=== PATIENT | female | born 1995 | race African-American/Black ===

== ENCOUNTER 2016-07-04 03:16 | Emergency (ER) | payer OTHER ==
[~2016-07-04 03:16] MED LIST: DICL50TA2 PO; METH750T2 PO
[2016-07-04 03:20] VITALS: BP 168/91; PULSE 78; RESP 16; TEMP 97.6; O2SAT 99
[2016-07-04] MEDS ORDERED: SODIUM CHLOR 0.9% 1000 ML INJ 1,000 ML IV SCH (04:11)
[2016-07-04] MEDS ORDERED: ONDANSETRON HCL 4 MG/2 ML VIAL IVP ONE (04:15)
[2016-07-04] MEDS ORDERED: MORPHINE SULFATE 8 MG/ML INJ IV PUSH ONE (04:15)
[2016-07-04] MEDS ORDERED: SODIUM CHLORIDE 0.9% FLUSH 5 ML FLUSH IVF PRN (04:15)
[2016-07-04] MEDS ORDERED: IOHEXOL 350 MG/ML 10 ML VIAL (for RAD DIAG) IV ONE (04:26)
[2016-07-04 04:33] LABS: AUTOMATED NEUTROPHIL # 6.1 TH/MM3 (1.8-7.7); BASOPHIL # 0.1 TH/MM3 (0-0.2); BASOPHIL % 0.9 % (0.0-2.0); EOSINOPHIL # 0.1 TH/MM3 (0-0.4); EOSINOPHIL % 1.2 % (0.0-4.0); HEMATOCRIT 40.7 % (35.0-46.0); HEMO FLAGS DIFF FINAL; LYMPH % 26.4 % (9.0-44.0); LYMPHOCYTE # 2.5 TH/MM3 (1.0-4.8); MEAN CELL VOLUME 76.3 FL (80.0-100.0); MEAN CORPUSCULAR HEMOGLOBIN 25.6 PG (27.0-34.0); MEAN CORPUSCULAR HGB CONC 33.6 % (32.0-36.0); MONO % 5.8 % (0.0-8.0); NEUT % 65.7 % (16.0-70.0); PLATELET COUNT 371 TH/MM3 (150-450); RED BLOOD COUNT 5.33 MIL/MM3 (4.00-5.30); RED CELL DISTRIBUTION WIDTH 14.5 % (11.6-17.2); WHITE BLOOD COUNT 9.3 TH/MM3 (4.0-11.0)
[2016-07-04 04:57] VITALS: O2SAT 95
[2016-07-04 05:03] LABS: ALT (GPT) 22 U/L (10-53); ANION GAP 10 MEQ/L (5-15); AST (GOT) 9 U/L (15-37); BICARBONATE 24.6 MEQ/L (21.0-32.0); BLOOD UREA NITROGEN 5 MG/DL (7-18); CHLORIDE 102 MEQ/L (98-107); GLOMERULAR FILTRATION RATE 169 ML/MIN (>89); POTASSIUM 3.8 MEQ/L (3.5-5.1); SODIUM (NA) 137 MEQ/L (136-145)
[2016-07-04 05:04] LABS: ALKALINE PHOSPHATASE 68 U/L (45-117); TOTAL BILIRUBIN ADULT 0.5 MG/DL (0.2-1.0)
--- NOTE | 2016-07-04 05:32 | RADRPT ---
EXAM DATE/TIME: 07/04/2016 04:17 [place] COMPARISON: No previous studies available for comparison. INDICATIONS : Abdominal pain. IV CONTRAST: 88 cc Omnipaque 350 (iohexol) IV ORAL CONTRAST: No oral contrast ingested. RADIATION DOSE: 28.36 CTDIvol (mGy) MEDICAL HISTORY : None SURGICAL HISTORY : None. ENCOUNTER: Initial ACUITY: 1 day PAIN SCALE: 5/10 LOCATION: abdomen TECHNIQUE: Volumetric scanning of the abdomen and pelvis was performed. Using automated exposure control and ad justment of the mA and/or kV according to patient size, radiation dose was kept as low as reasonably achievable to obtain optimal diagnostic quality images. FINDINGS: Lung bases are clear. Mild fatty liver. Spleen, adrenals, kidneys and pancreas unremarkable. No calci fied gallstones or biliary ductal dilatation. No free fluid. No bowel obstruction. No adenopathy. In the right adnexal region is a 2.6 cm circumscr ibed lesion containing fat likely a small ovarian dermoid. CONCLUSION: 1. No acute findings within the abdomen and pelvis. Fatty liver. Small dermoid in the left adnexa. Tyron Hurt MD on July 04, 2016 at 5:28 Board Certified Radiologist. This report was verified electronically.
[2016-07-04 05:55] LABS: BLOOD, URINE NEG (NEG); COMMENT (UR) CULT NOT INDICATED; CULTURE IF INDICATED CULT NOT INDICATED; GLUCOSE,URINE 1000 mg/dL (NEG); KETONE, URINE 150 mg/dL (NEG); MUCUS URINE FEW /lpf (OCC); NITRITE,URINE NEG (NEG); PH, URINE 6.5 (5.0-8.5); SQUAMOUS EPITHELIAL CELL URINE 7 /hpf (0-5); URINE COLOR LIGHT-YELLOW (YELLW/STRAW)
--- NOTE | 2016-07-04 06:33 | PD ---
HPI Chief Complaint: GI Complaint Time Seen by Provider: 03:31 Travel History International Travel<30 days: No Contact w/Intl Traveler<30days: No Traveled to known affect area: No History of Present Illness HPI The patient is 21 years old and she arrives complaining of abdominal pain after eating hamburger. She has had pain in the right upper quadrant. Nausea vomiting diarrhea reported. Subjective fever reported. No urinary complaint reported. No sick contact. Last menstruation was a few days ago. Evidently the patient's father had a hamburger from the same restaurant a few hours later and was asymptomatic. Nonbloody emesis and diarrhea reported. PFSH Past Medical History Developmental Delay: No Diminished Hearing: No Immunizations Current: Yes Tetanus Vaccination: < 5 Years Influenza Vaccination: No ?: Not LMP: 06/28/16 Past Surgical History Tonsillectomy: Yes (AND ADNOIDS) Tympanostomy Tube: Yes Social History Alcohol Use: No Tobacco Use: No Substance Use: No Allergies-Medications (Allergen,Severity, Reaction): Coded Allergies: No Known Allergies (Verified , 07/04/16) Reported Meds & Prescriptions Reported Meds & Active Scripts Active Zofran Odt (Ondansetron Odt) 4 Mg Tab 4 Mg SL Q8HR PRN Review of Systems Except as stated in HPI: all other systems reviewed are Neg General / Constitutional: No: Fever HENT: Positive: Earache, No: Nosebleed Gastrointestinal: Positive: Nausea, Vomiting, Diarrhea, Abdominal Pain Physical Exam Narrative GENERAL: 21-year-old female pleasant no acute distress SKIN: Warm and dry. HEAD: Atraumatic. Normocephalic. EYES: Pupils equal and round. No scleral icterus. No injection or drainage. ENT: No nasal bleeding or discharge. Mucous membranes pink and moist. Tympanic membranes are pink with clear visualization of bony landmarks. NECK: Trachea midline. No JVD. CARDIOVASCULAR: Regular rate and rhythm. RESPIRATORY: No accessory muscle use. Clear to auscultation. Breath sounds equal bilaterally. GASTROINTESTINAL: Abdomen soft, non-tender, nondistended. Hepatic and splenic margins not palpable. MUSCULOSKELETAL: Extremities without clubbing, cyanosis, or edema. No obvious deformities. NEUROLOGICAL: Awake and alert. No obvious cranial nerve deficits. Motor grossly within normal limits. Five out of 5 muscle strength in the arms and legs. Normal speech. PSYCHIATRIC: Appropriate mood and affect; insight and judgment normal. Data Data Last Documented VS Vital Signs Date Time Temp Pulse Resp B/P Pulse Ox O2 Delivery O2 Flow Rate FiO2 07/04/16 06:45 98.4 87 18 148/74 100 Room Air Orders Complete Blood Count With Diff (07/04/16 04:11) Comprehensive Metabolic Panel (07/04/16 04:11) Lipase (07/04/16 04:11) Urinalysis - C+S If Indicated (07/04/16 04:11) Ct Abd/Pel W Iv Contrast(Rout) (07/04/16 04:11) Iv Access Insert/Monitor (07/04/16 04:11) Ecg Monitoring (07/04/16 04:11) Oximetry (07/04/16 04:11) Ondansetron Inj (Zofran Inj) (07/04/16 04:15) Sodium Chlor 0.9% 1000 Ml Inj (Ns 1000 M (07/04/16 04:11) Sodium Chloride 0.9% Flush (Ns Flush) (07/04/16 04:15) Morphine Inj (Morphine Inj) (07/04/16 04:15) Ed Urine Pregnancytest Poc (07/04/16 04:11) Iohexol 350 Inj (Omnipaque 350 Inj) (07/04/16 04:26) Labs Laboratory Tests Test 07/04/16 07/04/16 04:16 05:34 White Blood Count 9.3 TH/MM3 Red Blood Count 5.33 MIL/MM3 Hemoglobin 13.6 GM/DL Hematocrit 40.7 % Mean Corpuscular Volume 76.3 FL Mean Corpuscular Hemoglobin 25.6 PG Mean Corpuscular Hemoglobin 33.6 % Concent Red Cell Distribution Width 14.5 % Platelet Count 371 TH/MM3 Mean Platelet Volume 9.2 FL Neutrophils (%) (Auto) 65.7 % Lymphocytes (%) (Auto) 26.4 % Monocytes (%) (Auto) 5.8 % Eosinophils (%) (Auto) 1.2 % Basophils (%) (Auto) 0.9 % Neutrophils # (Auto) 6.1 TH/MM3 Lymphocytes # (Auto) 2.5 TH/MM3 Monocytes # (Auto) 0.5 TH/MM3 Eosinophils # (Auto) 0.1 TH/MM3 Basophils # (Auto) 0.1 TH/MM3 CBC Comment DIFF FINAL Differential Comment Sodium Level 137 MEQ/L Potassium Level 3.8 MEQ/L Chloride Level 102 MEQ/L Carbon Dioxide Level 24.6 MEQ/L Anion Gap 10 MEQ/L Blood Urea Nitrogen 5 MG/DL Creatinine 0.55 MG/DL Estimat Glomerular Filtration 169 ML/MIN Rate Random Glucose 284 MG/DL Calcium Level 8.5 MG/DL Total Bilirubin 0.5 MG/DL Aspartate Amino Transf 9 U/L (AST/SGOT) Alanine Aminotransferase 22 U/L (ALT/SGPT) Alkaline Phosphatase 68 U/L Total Protein 7.7 GM/DL Albumin 3.7 GM/DL Lipase 161 U/L Urine Color LIGHT-YELLOW Urine Turbidity CLEAR Urine pH 6.5 Urine Specific [place] GREATER THAN 1.050 Urine Protein TRACE mg/dL Urine Glucose (UA) 1000 mg/dL Urine Ketones 150 mg/dL Urine Occult Blood NEG Urine Nitrite NEG Urine Bilirubin NEG Urine Urobilinogen LESS THAN 2.0 MG/DL Urine Leukocyte Esterase NEG Urine RBC 3 /hpf Urine WBC 5 /hpf Urine Squamous Epithelial 7 /hpf Cells Urine Mucus FEW /lpf Microscopic Urinalysis Comment CULT NOT INDICATED MDM Medical Decision Making Medical Screen Exam Complete: Yes Emergency Medical Condition: Yes Medical Record Reviewed: Yes Differential Diagnosis Sinusitis, bronchitis, pneumonia, allergies, postnasal drip, GERD, asthma Narrative Course CBC & BMP Diagram 07/04/16 04:16 LFTs normal No AG acidosis Hyperglycemia d/w both patient and patient's mother by phone at 0800. Follow up with PMD discussed. Mother familiar with disease and will assist patient with follow up. Diagnosis Primary Impression: Abdominal pain Qualified Code: R10.13 - Epigastric pain Additional Impression: Hyperglycemia Referrals: Primary Care Physician 2 days Additional Instructions: You have a choice when it comes to health care, and we are glad that you chose [facility]. Hopefully, we have met your expectations on today's visit. You are welcome to return to [facility] at any time, as we are committed to meeting the health care needs of our community. Med/Other Pt SpecificInfo: Prescription(s) given Scripts Ondansetron Odt (Zofran Odt)4 Mg Tab4 Mg SL Q8HR PRN (Nausea/Vomiting) #10 TAB Ref 0 Prov:Octavio Kam MD 07/04/16 Disposition: 01 DISCHARGE HOME Condition: Stable Octavio aKm MD Jul 04, 2016 06:33
[2016-07-04 06:45] VITALS: BP 148/74; PULSE 87; RESP 18; TEMP 98.4; O2SAT 100
[2016-07-04] MEDS ORDERED: ZOFR4TAB3 SL (07:05)
[2016-07-05] MEDS ORDERED: METF500T PO (05:02)
[2016-07-05] MEDS ORDERED: REGL10TA5 PO (05:02)
[2016-07-05] MEDS ORDERED: ACCUMIS25 (05:02)
[2016-07-05] MEDS ORDERED: BLOO1KIT65 (05:02)
== END 2016-07-04 07:45 | disposition home or self-care (01) ==
LOC: NEPC 03:16
DX: R10.13 Epigastric pain (principal); R19.7 Diarrhea, unspecified; R11.2 Nausea with vomiting, unspecified; R73.9 Hyperglycemia, unspecified
CPT/HCPCS: 74177; 80053; 81001; 83690; 84703; 85025; 96361; 96374; 96375; 99284; J2270; J2405; J7030; Q9967

== ENCOUNTER 2016-07-05 03:12 | Emergency (ER) | payer OTHER ==
[~2016-07-05 03:12] MED LIST changes: -DICL50TA2 PO; -METH750T2 PO; +ZOFR4TAB3 SL
[2016-07-05 03:16] VITALS: BP 144/75; PULSE 68; RESP 16; TEMP 97.5; O2SAT 98
--- NOTE | 2016-07-05 03:47 | PD ---
HPI Chief Complaint: Abdominal Pain Time Seen by Provider: 03:47 Travel History International Travel<30 days: No Contact w/Intl Traveler<30days: No Traveled to known affect area: No History of Present Illness HPI 21-year-old female came to the emergency room with her mother with history of abdominal pain and vomiting. Patient was here the night prior for the exact same complain. She had blood test and CAT scan done. CAT scan showed fatty liver. Patient also incidentally had high blood sugar. She was discharged home on diclofenac for pain. And Zofran for nausea. However the pain and the vomiting continues and she seemed extremely anxious. She was crying and saying that she could not go to work feeling like this. When I went to see her she was asleep on the stretcher and did not seem to be in any significant distress. However as soon as she woke up and I was talking to her and her mother regarding the fatty liver syndrome and explaining to them that pathology she got very worked up and started to cry. Mother seems to understand but was concerned about this pain and vomiting. Patient last had some soup last night but was unable to keep it down. This has been going on for 4 days. [facility] Past Medical History Narrative Medical List of her past medical, surgical, social and family history is reviewed from the nursing note. Developmental Delay: No Diminished Hearing: No Immunizations Current: Yes ?: Not Past Surgical History Tonsillectomy: Yes (AND ADNOIDS) Tympanostomy Tube: Yes Social History Alcohol Use: No Tobacco Use: No Substance Use: No Allergies-Medications (Allergen,Severity, Reaction): Coded Allergies: No Known Allergies (Verified , 07/05/16) Comments No known drug allergies. Reported Meds & Prescriptions Reported Meds & Active Scripts Active Accu-Chek Capri Connect W/Device (Device) 1 Kit Kit 1 Kit .ROUTE DIRECTED Accu-Chek Fastclix Lancet 1 Mis Mis 1 Ea .ROUTE DIRECTED Reglan (Metoclopramide HCl) 10 Mg Tab 10 Mg PO TIDAC Metformin (Metformin HCl) 500 Mg Tab 500 Mg PO BIDPC With meals Zofran Odt (Ondansetron Odt) 4 Mg Tab 4 Mg SL Q8HR PRN Narrative Medication List of her home medications reviewed from the nursing note. Review of Systems Except as stated in HPI: all other systems reviewed are Neg Physical Exam Narrative GENERAL: Awake, alert, morbidly obese, anxious SKIN: Warm and dry. HEAD: Atraumatic. Normocephalic. EYES: Pupils equal and round. No scleral icterus. No injection or drainage. ENT: No nasal bleeding or discharge. Mucous membranes pink and moist. NECK: Trachea midline. No JVD. CARDIOVASCULAR: Regular rate and rhythm. No murmur appreciated. RESPIRATORY: No accessory muscle use. Clear to auscultation. Breath sounds equal bilaterally. GASTROINTESTINAL: Abdomen soft, non-tender, nondistended. Hepatic and splenic margins not palpable. MUSCULOSKELETAL: No obvious deformities. No clubbing. No cyanosis. No edema. NEUROLOGICAL: Awake and alert. No obvious cranial nerve deficits. Motor grossly within normal limits. Normal speech. PSYCHIATRIC: Appropriate mood and affect; insight and judgment normal. Data Data Last Documented VS Orders Blood Glucose (07/05/16 03:57) Mandatory Outpatient Referral (07/05/16 05:09) [facility] Medical Decision Making Medical Screen Exam Complete: Yes Emergency Medical Condition: Yes Medical Record Reviewed: Yes Differential Diagnosis Hyperglycemia, fatty liver syndrome, gastroparesis Narrative Course 5 AM bedside blood glucose done by the nurse was 245. This is definitely high especially given the fact that patient has not eaten or drank anything substantial in the past few hours. I told the mother that we'll start her on metformin. Mom said that she had diabetes before she had her gastric bypass. After the surgery she lost a lot of weight and she did not have to be on medications for diabetes. She understands that a lot of her symptoms are connected to her obesity. I tried to reassure her and told her that I will discharge her home on a different medication for nausea which have chosen Reglan because there is a chance patient's symptoms are related to diabetic gastroparesis. I will give her a work note as well as a GI follow-up. I'll order a mandatory GI follow-up for her as well. I have encouraged the mother to get her a primary care physician so that all these ailments can be managed. Patient will be discharged home. Procedures EKG Prior to Arrival: No Diagnosis Primary Impression: Gastritis Qualified Code: K29.00 - Acute gastritis without hemorrhage, unspecified gastritis type Additional Impressions: Diabetes Qualified Code: E11.9 - Type 2 diabetes mellitus without complication, without long-term current use of insulin Diabetic gastroparesis Fatty liver Referrals: Alfa Sheikh MD 2 days Departure Forms: Tests/Procedures, Work Release Enter return to work date: Jul 07, 2016 Additional Instructions: Take medications as per the prescription direction. You need your sugar to be checked at least twice a day. Please find a primary care for yourselves. Called the GI specialist's name and number been given to you on Wednesday and get an appointment to follow-up. Return to the ER if the condition worsens or any other new concerns. Med/Other Pt SpecificInfo: Prescription(s) given Scripts Accu-Chek Capri Plus Kit (Accu-Chek Capri Connect W/Device)1 Kit Kit #1 KIT .ROUTE DIRECTED Ref 0 Prov:Jhoana Nascimento MD 07/05/16 Accu-Chek Fastclix Lancet 1 Mis Mis #100 EA .ROUTE DIRECTED Ref 0 Prov:Jhoana Nascimento MD 07/05/16 Metoclopramide (Reglan)10 Mg Tab10 Mg PO TIDAC #15 TAB Ref 0 Prov:Jhoana Nascimento MD 07/05/16 Metformin 500 Mg [id number] Mg PO BIDPC #60 TAB Ref 0 With meals Prov:Jhoana Nascimento MD 07/05/16 Disposition: 01 DISCHARGE HOME Condition: Stable Jhoana Nascimento MD Jul 05, 2016 03:47 Prov:Jhoana Nascimento MD 07/05/16 Metformin 500 Mg [id number] Mg PO BIDPC #60 TAB Ref 0 With meals Prov:Jhoana Nascimento MD 07/05/16 Disposition: 01 DISCHARGE HOME Condition: Stable Jhoana Nascimento MD Jul 05, 2016 03:47
[2016-07-05 04:49] VITALS: BP 146/65; PULSE 62; RESP 16; O2SAT 98
[2016-07-05] MEDS ORDERED: ACCUMIS25 (05:02)
[2016-07-05] MEDS ORDERED: REGL10TA5 PO (05:02)
[2016-07-05] MEDS ORDERED: BLOO1KIT65 (05:02)
[2016-07-05] MEDS ORDERED: METF500T PO (05:02)
== END 2016-07-05 05:24 | disposition home or self-care (01) ==
LOC: NEPC 03:12
DX: K29.00 Acute gastritis without bleeding (principal); E11.9 Type 2 diabetes mellitus without complications; K76.0 Fatty (change of) liver, not elsewhere classified; Z79.84 Long term (current) use of oral hypoglycemic drugs
CPT/HCPCS: 99284

== ENCOUNTER 2017-02-27 06:49 | Emergency (ER) | payer OTHER ==
[~2017-02-27] VITALS: Ht 162.6 cm; Wt 120.0 kg
[~2017-02-27 06:49] MED LIST changes: +ACCUMIS25; +BLOO1KIT65; +METF500T PO; +REGL10TA5 PO
[2017-02-27 06:50] VITALS: BP 148/82; PULSE 88; RESP 16; TEMP 97.6; O2SAT 97
[2017-02-27] MEDS ORDERED: EMPA1TAB PO (07:25)
[2017-02-27] MEDS ORDERED: ALUMINUM/MAGNESIUM/SIMETH 30 ML CUP PO ONE (08:30)
[2017-02-27] MEDS ORDERED: FAMOTIDINE 20 MG/2 ML VIAL IV PUSH ONE (08:30)
[2017-02-27] MEDS ORDERED: SODIUM CHLORIDE 0.9% FLUSH 10 ML FLUSH IV FLUSH PRN (08:30)
[2017-02-27] MEDS ORDERED: ATROPINE/SCOPOLAM/HYOSCYAM/PB ELIXIR 10 ML CUP PO ONE (08:30)
[2017-02-27 08:34] VITALS: RESP 18; O2SAT 98
[2017-02-27 08:47] LABS: AUTOMATED NEUTROPHIL # 4.6 TH/MM3 (1.8-7.7); BASOPHIL # 0.1 TH/MM3 (0-0.2); BASOPHIL % 0.8 % (0.0-2.0); EOSINOPHIL # 0.1 TH/MM3 (0-0.4); EOSINOPHIL % 0.9 % (0.0-4.0); HEMO FLAGS DIFF FINAL; LYMPHOCYTE # 2.3 TH/MM3 (1.0-4.8); MEAN CELL VOLUME 77.1 FL (80.0-100.0); MEAN CORPUSCULAR HEMOGLOBIN 25.7 PG (27.0-34.0); MEAN CORPUSCULAR HGB CONC 33.3 % (32.0-36.0); MONO % 4.8 % (0.0-8.0); NEUT % 62.5 % (16.0-70.0); PLATELET COUNT 344 TH/MM3 (150-450); RED BLOOD COUNT 5.19 MIL/MM3 (4.00-5.30); RED CELL DISTRIBUTION WIDTH 15.1 % (11.6-17.2); WHITE BLOOD COUNT 7.4 TH/MM3 (4.0-11.0)
[2017-02-27 09:11] LABS: ALKALINE PHOSPHATASE 53 U/L (45-117); ALT (GPT) 24 U/L (10-53); TOTAL BILIRUBIN ADULT 0.3 MG/DL (0.2-1.0)
[2017-02-27 09:12] LABS: ANION GAP 7 MEQ/L (5-15); AST (GOT) 31 U/L (15-37); BICARBONATE 24.4 MEQ/L (21.0-32.0); BLOOD UREA NITROGEN 17 MG/DL (7-18); CHLORIDE 106 MEQ/L (98-107); GLOMERULAR FILTRATION RATE 140 ML/MIN (>89); POTASSIUM 4.4 MEQ/L (3.5-5.1); SODIUM (NA) 137 MEQ/L (136-145)
[2017-02-27 09:17] LABS: BACTERIA, URINE MANY /hpf; BLOOD, URINE TRACE (NEG); COMMENT (UR) CULTURE INDICATED; CULTURE IF INDICATED CULTURE INDICATED; GLUCOSE,URINE 1000 mg/dL (NEG); KETONE, URINE TRACE mg/dL (NEG); MUCUS URINE FEW /lpf (OCC); NITRITE,URINE NEG (NEG); PH, URINE 5.5 (5.0-8.5); SQUAMOUS EPITHELIAL CELL URINE 18 /hpf (0-5); URINE COLOR YELLOW (YELLW/STRAW)
--- NOTE | 2017-02-27 09:48 | PD ---
HPI Chief Complaint: Abdominal Pain Time Seen by Provider: 08:14 Travel History International Travel<30 days: No Contact w/Intl Traveler<30days: No Traveled to known affect area: No History of Present Illness HPI 22-year-old female complains of abdominal pain and nausea. Patient states that the symptoms started this morning. Patient states the pain is burning pain localized around the epigastric area. Patient denies any pain radiation. Patient denies any vomiting or diarrhea. Patient denies any dysuria or frequency. Patient denies any vaginal discharge or bleeding. Patient has history of fatty liver. PFSH Past Medical History Asthma: Yes Developmental Delay: No Diabetes: Yes Patient Takes Glucophage: Yes Diminished Hearing: No Gastrointestinal Disorders: Yes (fatty liver) Respiratory: Yes (ASTHMA) Immunizations Current: Yes ?: Unknown LMP: 02-04-17 Past Surgical History Tonsillectomy: Yes (AND ADNOIDS) Tympanostomy Tube: Yes Social History Alcohol Use: No Tobacco Use: No Substance Use: No Allergies-Medications (Allergen,Severity, Reaction): Coded Allergies: No Known Allergies (Verified Adverse Reaction, Unknown, 02/27/17) Reported Meds & Prescriptions Reported Meds & Active Scripts Active Accu-Chek Capri Connect W/Device (Device) 1 Kit Kit 1 Kit .ROUTE DIRECTED Accu-Chek Fastclix Lancet 1 Mis Mis 1 Ea .ROUTE DIRECTED Metformin (Metformin HCl) 500 Mg Tab 500 Mg PO BIDPC With meals Reported Jardiance (Empagliflozin) 10 Mg Tab 10 Mg PO DAILY Review of Systems General / Constitutional: No: Fever Eyes: No: Visual changes HENT: No: Headaches Cardiovascular: No: Chest Pain or Discomfort Respiratory: No: Shortness of Breath Gastrointestinal: Positive: Nausea, Abdominal Pain Genitourinary: No: Dysuria Musculoskeletal: No: Pain Skin: No Rash Neurologic: No: Weakness Psychiatric: No: Depression Endocrine: No: Polydipsia Hematologic/Lymphatic: No: Easy Bruising Physical Exam Narrative GENERAL: Well-nourished, well-developed patient. SKIN: Focused skin assessment warm/dry. HEAD: Normocephalic. EYES: No scleral icterus. No injection or drainage. NECK: Supple, trachea midline. No JVD or lymphadenopathy. CARDIOVASCULAR: Regular rate and rhythm without murmurs, gallops, or rubs. RESPIRATORY: Breath sounds equal bilaterally. No accessory muscle use. GASTROINTESTINAL: Abdomen soft, nondistended. Mild tenderness on palpation epigastric area. No rebound tenderness. No mass. MUSCULOSKELETAL: No cyanosis, or edema. BACK: Nontender without obvious deformity. No CVA tenderness. Neurologic exam normal. Data Data Last Documented VS Vital Signs Date Time Temp Pulse Resp B/P (MAP) Pulse Ox O2 Delivery O2 Flow Rate FiO2 02/27/17 08:34 18 98 Room Air 02/27/17 06:50 97.6 88 Orders Orders Complete Blood Count With Diff (02/27/17 08:18) Comprehensive Metabolic Panel (02/27/17 08:18) Lipase (02/27/17 08:18) Urinalysis - C+S If Indicated (02/27/17 08:18) Iv Access Insert/Monitor (02/27/17 08:18) Ecg Monitoring (02/27/17 08:18) Oximetry (02/27/17 08:18) Sodium Chloride 0.9% Flush (Ns Flush) (02/27/17 08:30) Famotidine Inj (Pepcid Inj) (02/27/17 08:30) Ed Urine Pregnancytest Poc (02/27/17 08:18) Al-Mag Hy-Si 40-40-4 Mg/Ml Liq (Mag-Al P (02/27/17 08:30) Ojlpk-Firoil-Eptfnx-Pb Liq ( Liq (02/27/17 08:30) Urine Culture (02/27/17 08:33) Ed Discharge Order (02/27/17 09:53) Labs Laboratory Tests Test 02/27/17 08:33 White Blood Count 7.4 TH/MM3 Red Blood Count 5.19 MIL/MM3 Hemoglobin 13.3 GM/DL Hematocrit 40.0 % Mean Corpuscular Volume 77.1 FL Mean Corpuscular Hemoglobin 25.7 PG Mean Corpuscular Hemoglobin Concent 33.3 % Red Cell Distribution Width 15.1 % Platelet Count 344 TH/MM3 Mean Platelet Volume 8.9 FL Neutrophils (%) (Auto) 62.5 % Lymphocytes (%) (Auto) 31.0 % Monocytes (%) (Auto) 4.8 % Eosinophils (%) (Auto) 0.9 % Basophils (%) (Auto) 0.8 % Neutrophils # (Auto) 4.6 TH/MM3 Lymphocytes # (Auto) 2.3 TH/MM3 Monocytes # (Auto) 0.4 TH/MM3 Eosinophils # (Auto) 0.1 TH/MM3 Basophils # (Auto) 0.1 TH/MM3 CBC Comment DIFF FINAL Differential Comment Urine Color YELLOW Urine Turbidity CLOUDY Urine pH 5.5 Urine Specific [place] 1.039 Urine Protein TRACE mg/dL Urine Glucose (UA) 1000 mg/dL Urine Ketones TRACE mg/dL Urine Occult Blood TRACE Urine Nitrite NEG Urine Bilirubin NEG Urine Urobilinogen LESS THAN 2.0 MG/DL Urine Leukocyte Esterase LARGE Urine RBC 6 /hpf Urine WBC 64 /hpf Urine Squamous Epithelial Cells 18 /hpf Urine Bacteria MANY /hpf Urine Mucus FEW /lpf Microscopic Urinalysis Comment CULTURE INDICATED Blood Urea Nitrogen 17 MG/DL Creatinine 0.64 MG/DL Random Glucose 146 MG/DL Total Protein 7.8 GM/DL Albumin 3.6 GM/DL Calcium Level 8.1 MG/DL Alkaline Phosphatase 53 U/L Aspartate Amino Transf (AST/SGOT) 31 U/L Alanine Aminotransferase (ALT/SGPT) 24 U/L Total Bilirubin 0.3 MG/DL Sodium Level 137 MEQ/L Potassium Level 4.4 MEQ/L Chloride Level 106 MEQ/L Carbon Dioxide Level 24.4 MEQ/L Anion Gap 7 MEQ/L Estimat Glomerular Filtration Rate 140 ML/MIN Lipase 331 U/L MDM Medical Decision Making Medical Screen Exam Complete: Yes Emergency Medical Condition: Yes Interpretation(s) 9:40 AM. CBC within normal limit. Hemoglobin 13.3 with MCV 77.1. CMP within normal limit. UA positive for WBC and bacteria. Urine test negative. Differential Diagnosis Differential diagnosis including gastritis, PUD, pain [place], cholecystitis, colitis, UTI, pyelonephritis, nephrolithiasis. Narrative Course 32-year-old female with epigastric abdominal pain. Pepcid 20 mg IV. Maalox 30 cc by mouth. 10 cc by mouth. Diagnosis Primary Impression: Gastritis Qualified Codes: K29.00 - Acute gastritis without bleeding Additional Impression: UTI (urinary tract infection) Qualified Codes: N30.00 - Acute cystitis without hematuria Patient Instructions: General Instructions Additional Instructions: Take medications as directed. Follow-up with personal physician and credit or loans officer. Return if worse. Med/Other Pt SpecificInfo: Prescription(s) given Scripts Sulfamethoxazole-Trimethoprim (Bactrim DS) 800-160 Mg Tab 1 TAB PO BID for Infection, #6 TAB 0 Refills Prov: Rm Hendrickson MD 02/27/17 Sucralfate (Carafate) 1 Gram Tab 1 GM PO QID for Ulcer Prevention, #120 TAB 0 Refills On empty stomach Prov: Rm Hendrickson MD 02/27/17 Pantoprazole (Protonix) 40 Mg Tab 40 MG PO DAILY for Reflux, #30 TAB 0 Refills Prov: Rm Hendrickson MD 02/27/17 Disposition: 01 DISCHARGE HOME Condition: Stable Rm Hendrickson MD Feb 27, 2017 09:48
[2017-02-27] MEDS ORDERED: PROT40TA PO (09:55)
[2017-02-27] MEDS ORDERED: BACT800T5 PO (09:55)
[2017-02-27] MEDS ORDERED: CARA1TAB6 PO (09:55)
== END 2017-02-27 11:04 | disposition home or self-care (01) ==
LOC: NEPE 06:49
DX: K29.70 Gastritis, unspecified, without bleeding (principal); N39.0 Urinary tract infection, site not specified; B96.89 Other specified bacterial agents as the cause of diseases classified elsewhere; J45.909 Unspecified asthma, uncomplicated; E11.9 Type 2 diabetes mellitus without complications; Z79.899 Other long term (current) drug therapy
CPT/HCPCS: 80053; 81001; 83690; 84703; 85025; 86403; 87086; 96374

== ENCOUNTER 2017-04-13 23:36 | Emergency (ER) | payer OTHER ==
[~2017-04-13] VITALS: Ht 162.6 cm; Wt 130.0 kg
[~2017-04-13 23:36] MED LIST changes: +BACT800T5 PO; +CARA1TAB6 PO; +EMPA1TAB PO; +PROT40TA PO; -REGL10TA5 PO; -ZOFR4TAB3 SL
[2017-04-13 23:38] VITALS: BP 136/94; PULSE 85; RESP 16; TEMP 97.5; O2SAT 96
[2017-04-14 00:24] LABS: AUTOMATED NEUTROPHIL # 6.6 TH/MM3 (1.8-7.7); BASOPHIL # 0.1 TH/MM3 (0-0.2); BASOPHIL % 0.7 % (0.0-2.0); EOSINOPHIL # 0.2 TH/MM3 (0-0.4); EOSINOPHIL % 1.4 % (0.0-4.0); HEMATOCRIT 42.3 % (35.0-46.0); HEMOGLOBIN 13.8 GM/DL (11.6-15.3); LYMPH % 39.9 % (9.0-44.0); LYMPHOCYTE # 4.8 TH/MM3 (1.0-4.8); MEAN CELL VOLUME 76.7 FL (80.0-100.0); MEAN CORPUSCULAR HEMOGLOBIN 25.1 PG (27.0-34.0); MEAN CORPUSCULAR HGB CONC 32.7 % (32.0-36.0); MEAN PLATELET VOLUME 9.1 FL (7.0-11.0); MONO % 3.7 % (0.0-8.0); MONOCYTE # 0.5 TH/MM3 (0-0.9); NEUT % 54.3 % (16.0-70.0); PLATELET COUNT 404 TH/MM3 (150-450); RED BLOOD COUNT 5.52 MIL/MM3 (4.00-5.30); WHITE BLOOD COUNT 12.1 TH/MM3 (4.0-11.0)
--- NOTE | 2017-04-14 00:36 | PD ---
HPI Chief Complaint: Abdominal Pain Time Seen by Provider: 23:45 Travel History International Travel<30 days: No Contact w/Intl Traveler<30days: No Traveled to known affect area: No History of Present Illness HPI Is a 22 year-old woman presents to the emergency department complaining of abdominal pain. She states she had abdominal pain about a month or so ago. She continued emergency department for. Review of records shows multiple visits for abdominal pain in the past. She is obese, diabetic. She is worried about her gallbladder. States symptoms came on tonight. A little bit of nausea associated with it. No vomiting. No urinary symptoms. No vaginal discharge or vaginal bleeding. Pains in the mid epigastrium, nonradiating, no other aggravating or alleviating factors. History Past Medical History Narrative Medical Diabetes Asthma Tetanus Vaccination: Unknown Influenza Vaccination: No LMP: 03-30-17 Social History Alcohol Use: No Tobacco Use: No Allergies-Medications (Allergen,Severity, Reaction): Coded Allergies: No Known Allergies (Verified Adverse Reaction, Unknown, 04/13/17) Reported Meds & Prescriptions Reported Meds & Active Scripts Active Bactrim DS (Sulfamethoxazole-Trimethoprim) 800-160 Mg Tab 1 Tab PO BID Carafate (Sucralfate) 1 Gram Tab 1 Gm PO QID On empty stomach Protonix (Pantoprazole Sodium) 40 Mg Tab 40 Mg PO DAILY Accu-Chek Capri Connect W/Device (Device) 1 Kit Kit 1 Kit .ROUTE DIRECTED Accu-Chek Fastclix Lancet 1 Mis Mis 1 Ea .ROUTE DIRECTED Metformin (Metformin HCl) 500 Mg Tab 500 Mg PO BIDPC With meals Reported Jardiance (Empagliflozin) 10 Mg Tab 10 Mg PO DAILY Review of Systems Except as stated in HPI: all other systems reviewed are Neg Physical Exam Narrative GENERAL: Well-appearing 22 year-old woman, no acute distress. SKIN: Focused skin assessment warm/dry. HEAD: Atraumatic. Normocephalic. EYES: Pupils equal and round. No scleral icterus. No injection or drainage. ENT: No nasal bleeding or discharge. Mucous membranes pink and moist. NECK: Trachea midline. No JVD. CARDIOVASCULAR: Regular rate and rhythm. No murmur appreciated. RESPIRATORY: No accessory muscle use. Clear to auscultation. Breath sounds equal bilaterally. GASTROINTESTINAL: Abdomen is obese and soft, mild epigastric and right upper quadrant tenderness. MUSCULOSKELETAL: No obvious deformities. No clubbing. No cyanosis. No edema. NEUROLOGICAL: Awake and alert. No obvious cranial nerve deficits. Motor grossly within normal limits. Normal speech. PSYCHIATRIC: Appropriate mood and affect; insight and judgment normal. Data Data Last Documented VS Vital Signs Date Time Temp Pulse Resp B/P (MAP) Pulse Ox O2 Delivery O2 Flow Rate FiO2 04/13/17 23:38 97.5 85 16 136/94 (108) 96 Orders Orders Complete Blood Count With Diff (04/13/17 23:57) Comprehensive Metabolic Panel (04/13/17 23:57) Ed Urine Pregnancytest Poc (04/13/17 23:57) Us Abdomen Gallbladder (04/14/17 ) Labs Laboratory Tests Test 04/14/17 00:05 White Blood Count 12.1 TH/MM3 Red Blood Count 5.52 MIL/MM3 Hemoglobin 13.8 GM/DL Hematocrit 42.3 % Mean Corpuscular Volume 76.7 FL Mean Corpuscular Hemoglobin 25.1 PG Mean Corpuscular Hemoglobin Concent 32.7 % Red Cell Distribution Width 15.0 % Platelet Count 404 TH/MM3 Mean Platelet Volume 9.1 FL Neutrophils (%) (Auto) 54.3 % Lymphocytes (%) (Auto) 39.9 % Monocytes (%) (Auto) 3.7 % Eosinophils (%) (Auto) 1.4 % Basophils (%) (Auto) 0.7 % Neutrophils # (Auto) 6.6 TH/MM3 Lymphocytes # (Auto) 4.8 TH/MM3 Monocytes # (Auto) 0.5 TH/MM3 Eosinophils # (Auto) 0.2 TH/MM3 Basophils # (Auto) 0.1 TH/MM3 CBC Comment DIFF FINAL Differential Comment Blood Urea Nitrogen 13 MG/DL Creatinine 0.57 MG/DL Random Glucose 143 MG/DL Total Protein 8.6 GM/DL Albumin 3.8 GM/DL Calcium Level 8.8 MG/DL Alkaline Phosphatase 68 U/L Aspartate Amino Transf (AST/SGOT) 105 U/L Alanine Aminotransferase (ALT/SGPT) 41 U/L Total Bilirubin 0.5 MG/DL Sodium Level 134 MEQ/L Potassium Level 6.4 MEQ/L Chloride Level 105 MEQ/L Carbon Dioxide Level 25.5 MEQ/L Anion Gap 4 MEQ/L Estimat Glomerular Filtration Rate 160 ML/MIN MDM Medical Decision Making Medical Screen Exam Complete: Yes Emergency Medical Condition: Yes Interpretation(s) LABS: CBC is unremarkable. CMP remarkable for mild hemolysis Ultrasound: Fatty liver, cholelithiasis. Differential Diagnosis Gastritis, peptic ulcer disease, pancreatitis, cholecystitis, other Narrative Course Medical decision making INITIAL: This is a 22 year-old woman presents emergency department complaining of epigastric abdominal pain. Likely gastritis or biliary colic. Looks well. Doubt cholecystitis. We'll check labs, ultrasound, likely discharge. FINAL: Patient with abdominal pain, possible biliary colic, possible gastritis. Recommend outpatient follow-up. Diagnosis Primary Impression: Abdominal pain Additional Instructions: Take ranitidine as prescribed. Use acetaminophen as needed for abdominal pain. Follow-up your primary physician for further evaluation. Pain is likely coming from her stomach or gallbladder. There is no evidence of gallbladder infection requiring emergency surgery. Return to the emergency department for any new or worsening symptoms. Med/Other Pt SpecificInfo: Prescription(s) given Scripts Pantoprazole (Protonix) 40 Mg Tab 40 MG PO DAILY for Reflux, #30 TAB 0 Refills Prov: Antonio Holley MD 04/14/17 Disposition: 01 DISCHARGE HOME Condition: Stable Antonio Holley MD Apr 14, 2017 00:36
--- NOTE | 2017-04-14 00:54 | RADRPT ---
EXAM DATE/TIME: 04/14/2017 00:18 [facility] COMPARISON: No previous studies available for comparison. INDICATIONS : Right upper quadrant pain. MEDICAL HISTORY : Asthma. Diabetes. Fatty liver disease. SURGICAL HISTORY : Tonsillectomy. ENCOUNTER: Initial ACUITY: 1 day PAIN SCORE: 5/10 LOCATION: Right upper quadrant MEASUREMENTS: LIVER: 21.0 cm length COMMON DUCT: 5 mm RIGHT KIDNEY: 12.3 x 6.1 x 5.3 cm FINDINGS: The liver is slightly echogenic which maybe due to fatty infiltration and or hepatocellular dysfuncti on. The gallbladder appears distended measuring 10 cm multiple tiny gallstones without gallbladder wa ll thickening, or pericholecystic fluid. The visualized liver, head of the pancreas, and right kidne y appear grossly intact for technique. CONCLUSION: 1. Cholelithiasis. 2. The liver is slightly echogenic which maybe due to fatty infiltration and or hepatocellular dysfun ctionEzra Pool. Jonnie Albright MD on April 14, 2017 at 0:51 Board Certified Radiologist. This report was verified electronically.
[2017-04-14 00:56] LABS: ALKALINE PHOSPHATASE 68 U/L (45-117); TOTAL BILIRUBIN ADULT 0.5 MG/DL (0.2-1.0); TOTAL PROTEIN 8.6 GM/DL (6.4-8.2)
[2017-04-14 01:01] LABS: ALBUMIN 3.8 GM/DL (3.4-5.0); ALT (GPT) 41 U/L (10-53); AST (GOT) 105 U/L (15-37); BICARBONATE 25.5 MEQ/L (21.0-32.0); BLOOD UREA NITROGEN 13 MG/DL (7-18); CALCIUM 8.8 MG/DL (8.5-10.1); CHLORIDE 105 MEQ/L (98-107); CREATININE 0.57 MG/DL (0.50-1.00); GLOMERULAR FILTRATION RATE 160 ML/MIN (>89); GLUCOSE,RANDOM 143 MG/DL (74-106); SODIUM (NA) 134 MEQ/L (136-145)
[2017-04-14] MEDS ORDERED: PROT40TA PO (01:08)
[2017-04-14] MEDS ORDERED: ACETAMINOPHEN 500 MG CPLT PO ONE (01:15)
== END 2017-04-14 01:51 | disposition home or self-care (01) ==
LOC: NEPE 23:36
DX: R10.13 Epigastric pain (principal); K80.20 Calculus of gallbladder without cholecystitis without obstruction; K76.0 Fatty (change of) liver, not elsewhere classified; K21.9 Gastro-esophageal reflux disease without esophagitis; E11.9 Type 2 diabetes mellitus without complications; Z79.84 Long term (current) use of oral hypoglycemic drugs
CPT/HCPCS: 76705; 80053; 84703; 85025